=== PATIENT | female | born 2000 | race Caucasian/White ===

== ENCOUNTER 2023-11-26 01:06 | Emergency (ER) | payer OTHER, SELFPAY ==
[2023-11-26 01:07] VITALS: BP 113/83; PULSE 63; RESP 15; TEMP 35.8; O2SAT 98; BMI 20.2
[2023-11-26 01:11] VITALS: BP 113/83; PULSE 63; RESP 16; TEMP 35.8; O2SAT 98
--- NOTE | 2023-11-26 01:31 | CT_ITS ---
INDICATION: right flank pain EXAMINATION: CT ABDOMEN AND PELVIS WITHOUT CONTRAST - CT Abdomen And Pelvis W/O Contrast Injection TECHNIQUE: Helically acquired images were obtained of the abdomen and pelvis without oral or IV contrast. A radiation dose optimization technique was used for this scan. IV Contrast dosage and agent: None. Oral contrast: None. COMPARISON: Chest radiographs September 27, 2007. FINDINGS: LOWER CHEST: Lung bases are clear. No cardiomegaly or pericardial effusion. LIVER: Homogeneous. No focal mass. GALLBLADDER AND BILIARY TREE: No calcified gallstones. No gallbladder distension or wall edema. No intra- or extrahepatic biliary ductal dilation. PANCREAS: No focal cystic or solid mass. SPLEEN: Normal size without focal cystic or solid mass. ADRENAL GLANDS: No nodules. KIDNEYS AND URETERS: Normal renal size and position. No hydronephrosis. No nephrolithiasis or perinephric inflammation. Unremarkable ureters. PERITONEUM: No ascites or free air. No other fluid collection. BOWEL: No acute gastric finding. No small bowel distention or focal wall thickening. Normal appendix. Large colonic stool burden without wall thickening or surrounding inflammation. . LYMPH NODES: No enlarged mesenteric or retroperitoneal lymph nodes. VESSELS: Aorta is non-dilated. URINARY BLADDER: Unremarkable. REPRODUCTIVE ORGANS: Anterior uterus leaning leftward. Intrauterine device in expected position. Symmetric ovaries with small follicles.. ABDOMINAL WALL: No discrete abdominal or pelvic wall hernia. BONES: No lytic or blastic abnormality. CT/Abdomen/Pelvis without Cont IMPRESSION: No specific finding for patient''s pain. Large colonic stool burden as can be seen with constipation. Electronically Signed: West Choudhury MD at 3:40 EDT ,
[2023-11-26] MEDS: Ketorolac 30 MG/ML Syringe IV (01:39)
[2023-11-26] MEDS: 0.9% Normal Saline (1000mL) 1,000 ML 999 ML IV (01:39)
[2023-11-26 01:45] LABS: Absolute Lymphocyte Count 3.05 X10^3/uL (0.83-4.51); Absolute Neutrophil Count 3.3 X10^3/uL (2.0-7.7); Basophil# 0.05 X10^3/uL; Basophil% 0.7 % (0-1); Eosinophil# 0.08 X10^3/uL; Eosinophils% 1.1 % (0-5); Hematocrit 43.1 % (37-47); Hemoglobin 14.8 g/dL (12.0-15.0); Lymphocyte # 3.05 X10^3/ul (0.83-4.51); Lymphocyte % 42.1 % (19-41); Mean Corp Hgb Conc 34.3 g/dL (32-36); Mean Corpuscular Hgb 30.1 pg (27.0-32.0); Mean Corpuscular Volume 87.8 fL (81-99); Mean Platelet Vol. 10.6 fl (6.2-12.0); Monocyte# 0.75 X10^3/uL; Monocyte% 10.3 % (0-10); NRBC Flagged by Analyzer 0 % (0-5); Neutrophil % 45.5 % (47-70); Platelet Count 224 K/mm3 (150-450); RBC Distribution Width CV 12.2 % (11.6-14.6); RBC Distribution Width SD 39.1 fl (35.1-43.9); Red Blood Count 4.91 M/mm3 (4.2-5.4); White Blood Count 7.3 K/mm3 (4.4-11.0)
[2023-11-26 01:54] LABS: Anion Gap 8 (5-15); BUN 9 mg/dL (7-18); Calcium,Total 8.8 mg/dL (8.5-10.1); Chloride 108 mmol/L (98-107); Creatinine, Serum 0.69 mg/dL (0.55-1.02); EST Glomerular Filtration Rate 110 mL/min (>60); Est Glom Filt Rate - Afr Amer 133 mL/min (>60); Estimated Creatinine Clearance 112.93 ml/min; Glucose 93 mg/dL (74-106); Potassium 3.6 mmol/L (3.5-5.1); Sodium Level 138 mmol/L (136-145)
[2023-11-26 02:02] LABS: Bacteria 0 SEEN /hpf (None Seen); Mucous, Urine 0 SEEN /hpf (<or=2+); Red Blood Cells-Urine 0 SEEN /hpf (0-5); White Blood Cells 0 SEEN /hpf (0-5)
[2023-11-26 02:03] LABS: Color, Urine Yellow (Yellow); Glucose, Dipstick Normal (Normal); Ketone-Dipstick 15 mg/dl (Negative); Leukocyte Esterase-Dipstick Negative /ul (Negative); Nitrite-Dipstick Negative (Negative); Occult Blood-Urine 50 /ul (Negative); Protein-Dipstick Negative (Negative); Urine Bilirubin Dipstick Negative (Negative); Urine Clarity Clear (Clear); Urine Urobilinogen Normal (Normal)
[2023-11-26 02:11] LABS: Internal QC Validated? YES +Cl - CLEAR BKGD; Pregnancy, Urine Negative Negative; Squamous Epithelial Cells - UA 0-5 SEEN /hpf (5-10)
--- NOTE | 2023-11-26 02:40 | EDS_ITS ---
HPI History of Present Illness Chief Complaint: Back Informant: patient and spouse/S.O. Narrative Narrative: Patient is a 23-year-old female with no significant past medical history. She reports that over the past week he has been having back pain as well as head ache. She reports that there was no excessive activity or trauma prior to her symptoms beginning. She denies any loss of bowel or bladder control or IV drug use. She states has been no dysuria and she is no concern for as she has an IUD in place. Patient states she saw her family doctor today secondary to the symptoms and was diagnosed with a sinus infection and placed on antibiotics as well as given pain medication for her head and back. Patient states that she is not filled the prescriptions yet and is planning on taking them starting in the morning. However this evening the pain in the back became more sharp and intense and she noticed blood with urination secondary to these new symptoms comes in for evaluation [facility] Medical History IUD (intrauterine device) in place Home Medications ?Medication ?Instructions ?Recorded ?Last Taken ?Type amoxicillin 875 mg-potassium 1 tab PO BID 11/26/23 Unknown History clavulanate 125 mg tablet fluconazole 150 mg tablet 150 mg PO X1 11/26/23 Unknown History gabapentin 300 mg capsule 300 mg PO TID 11/26/23 Unknown History methocarbamol 500 mg tablet PO 11/26/23 Unknown History Allergy/AdvReac Type Severity Reaction Status Date / Time No Known Allergies Allergy Verified 11/26/23 01:07 Surgical History (Updated 11/26/23 @ 01:08 by Gabrielle Paz) [place] teeth removed Social History Smoking Status: Current every day smoker tobacco type: e-cigarettes ROS ROS ED Constitutional Constitutional ED: Denies chills or fever(s) Eyes Eyes: Denies blurry vision or change in vision ENT ENT ED: Denies sore throat Cardiovascular Cardiovascular: Denies chest pain Respiratory/Chest Respiratory/Chest: Denies cough or dyspnea Gastrointestinal Gastrointestinal: Reports abdominal pain and nausea; Denies diarrhea or vomiting Genitourinary Genitourinary ED: Reports hematuria; Denies dysuria or urinary frequency Musculoskeletal Musculoskeletal: Reports back pain Integumentary Denies rash Neurologic Neurologic: Reports headache(s); Denies paresthesias or weakness Hematologic/Lymphatic Hematologic/Lymphatic: Denies easy bleeding or easy bruising EXAM Physical Exam Const Vital Signs: 11/26/23 01:07 11/26/23 01:11 Temperature 96.5 F L 96.5 F L Temperature Source Temporal Temporal Pulse Rate 63 63 Respiratory Rate 15 16 Blood Pressure 113/83 H 113/83 H Blood Pressure Mean 93 93 Pulse Ox 98 98 Oxygen Delivery Method Room Air Room Air Positive well nourished and well developed General Appearance ED: well developed; Negative for pallor HEENT Reports moist mucous membranes HEENT Narrative: No signs of infection noted in the posterior pharynx No tongue or lip swelling no oral lesions no airway edema or compromise Eyes PERRL and EOMs intact bilaterally General Eye ED: Negative for scleral icterus Neck supple Neck Narrative: No nuchal rigidity or meningeal signs Resp normal respiratory effort and clear to auscultation bilaterally Cardio regular rate and regular rhythm Rate: other Other Details: Heart is regular rate and rhythm without murmurs rubs or gallops Radial and carotid pulses are equal and symmetric GI non-distended and no masses GI Narrative: Abdomen is soft and nondistended with normal active bowel sounds. There is pain on palpation along the suprapubic right lower and right mid abdomen without voluntary guarding or rigidity. No pulsatile mass or fluid wave. No increased tympany. Auscultation: normoactive bowel sounds Palpation: soft Back/Spine Back/Spine Narrative: Positive right CVA pain noted Extremity normal to inspection Neuro oriented x3, CN's II-XII intact bilaterally and no sensory deficits noted Sensorium / Orientation: alert Motor Exam: strength 5/5 throughout Psych mental status grossly normal Skin no rashes or lesions noted and no wounds General Skin Exam: Negative for jaundice or pallor MDM MDM MDM Narrative Medical decision making narrative: Patient arrived to the ER with stable vitals. She denied any recent trauma or excessive activity to suggest lumbar or thoracic compression fracture. She also denied any loss of bowel or bladder control or IV drug use going against cauda equina or epidural abscess. As she has unilateral flank pain and now reports blood in her urine there is concern for hemorrhagic cystitis versus kidney stone versus pyelonephritis versus breakthrough uterine bleeding or hemorrhagic ovarian cyst. Basic blood work was obtained that shows no sign of UTI/pyelonephritis or acute kidney injury. CT scan revealed small ovarian follicles with constipation but no signs of bowel obstruction or kidney stone. On repeat evaluation patient has had improvement of symptoms after Toradol. Therefore at this time with stable vitals improvement of pain and overall negative workup I do not feel there is need for further evaluation in the ER and she is otherwise safe for discharge History & Record Review Discussion w/independent historian: Patient and Significant other Lab Data Attestation: I reviewed the patient's lab results. Labs: Laboratory Results - last 24 hr 11/26/23 11/26/23 01:14 01:58 WBC 7.3 RBC 4.91 Hgb 14.8 Hct 43.1 MCV 87.8 MCH 30.1 MCHC 34.3 RDW Std Deviation 39.1 RDW Coeff of Alejandra 12.2 Plt Count 224 MPV 10.6 Immature Gran % (Auto) 0.300 Neut % (Auto) 45.5 L Lymph % (Auto) 42.1 H [place] % (Auto) 10.3 H Eos % (Auto) 1.1 Baso % (Auto) 0.7 Absolute Neuts (auto) 3.3 Absolute Lymphs (auto) 3.05 Nucleated RBC % 0 Sodium 138 Potassium 3.6 Chloride 108 H Carbon Dioxide 22.0 Anion Gap 8 BUN 9 Creatinine 0.69 Estim Creat Clear Calc 112.93 Est GFR (MDRD) Af Amer 133 Est GFR (MDRD) Non-Af 110 BUN/Creatinine Ratio 13.0 Glucose 93 Calcium 8.8 Urine Color Yellow Urine Clarity Clear Urine pH 7.0 Ur Specific [place] 1.010 Urine Protein Negative Urine Glucose (UA) Normal Urine Ketones 15 H Urine Occult Blood 50 H Urine Nitrite Negative Urine Bilirubin Negative Urine Urobilinogen Normal Ur Leukocyte Esterase Negative Urine RBC 0 SEEN Urine WBC 0 SEEN Ur Squamous Epith Cells 0-5 SEEN Urine Bacteria 0 SEEN Urine Mucus 0 SEEN Urine Test Negative Radiography Diagnostic Testing: Clinical Impression(s) from Imaging Studies Abdomen/Pelvis CT 11/26/23 01:31 IMPRESSION: No specific finding for patient''s pain. Large colonic stool burden as can be seen with constipation. Electronically Signed: West Choudhury MD at 3:40 EDT , Discharge Plan Triage Chief Complaint: Back ED Provider: Thierno Benavides Dx/Rx/DC Orders Clinical Impression: Flank pain, Constipation Instructions: ED Flank Pain, Uncertain Cause Prescriptions: No Action methocarbamol 500 mg tablet PO fluconazole 150 mg tablet 150 mg PO X1 gabapentin 300 mg capsule 300 mg PO TID amoxicillin-pot clavulanate 875-125 mg tablet 1 tab PO BID Stand Alone Forms: ED Work / School Excuse Primary Care Provider: Davi Alexis Referrals: Davi Alexis MD [Primary Care Provider] - Activity Restrictions/Additional Instructions: Your workup today showed no sign of urinary tract infection or obvious kidney stone. However some kidney stones do not show up on x-ray or CAT scan and require an ultrasound. Take the medication that was provided by your family doctor and if symptoms persist discussed with them a ultrasound of your kidneys for further evaluation of your pain. If you have any further concerns please return to the ER for repeat evaluation Print Language: [place] Disposition Disposition: Home, Self Care
[2023-11-26 03:07] VITALS: BP 106/73; PULSE 60; RESP 16; O2SAT 99
[2023-11-26 03:51] VITALS: BP 106/73; PULSE 60; RESP 16; TEMP 36.8; O2SAT 99
== END 2023-11-26 03:57 | disposition home or self-care (01) ==
PROVIDERS: Emergency Provider Emergency Medicine; PCP Family Medicine; Visit Provider Emergency Medicine
DX: K59.00 Constipation, unspecified (principal); R10.31 Right lower quadrant pain; F17.290 Nicotine dependence, other tobacco product, uncomplicated
CPT/HCPCS: 74176; 80048; 81001; 81025; 85025; 96361; 96374; 99282; J7030; A4216